=== PATIENT | male | born 1945 | race Caucasian/White ===

== ENCOUNTER 2024-10-16 00:31 | Inpatient (IN) | payer MEDICARE, OTHER, SELFPAY ==
[2024-10-15 22:30] VITALS: BP 123/69
[2024-10-15 22:33] VITALS: BP 123/69
[2024-10-15 22:34] VITALS: BMI 25.6
[2024-10-15 22:58] LABS: % Basophils 0.8 % (0-2); % Eosinophils 6.3 % (0-6); % Immature Granulocytes 0.1 % (0-0.5); % Lymphocytes 20.3 % (20.5-51.1); % Monocytes 12.6 % (1.7-9.3); % Neutrophils 59.9 % (42.2-75.2); Absolute Basophils 0.1 10^3/uL (0-0.2); Absolute Eosinophils 0.5 10^3/uL (0-0.7); Absolute Lymphocytes 1.5 10^3/uL (1.2-3.4); Absolute Monocytes 0.9 10^3/uL (0.1-0.6); Absolute Neutrophils 4.3 10^3/uL (1.4-6.5); Hematocrit 36.8 % (39.0-52.0); Hemoglobin 12.6 g/dL (13.0-18.0); Mean Corp Hgb Conc. 34.2 g/dL (33.0-37.0); Mean Corpuscular Hgb 31.7 pg (27.0-31.0); Mean Corpuscular Volume 92.7 fL (80.0-94.0); Mean Platelet Volume 11.8 fL (7.4-10.4); Nucleated Red Blood Cells % 0 % (-); Platelet Count 193 10^3/uL (130-400); Red Blood Cell Count 3.97 10^6/uL (4.70-6.10); Red Cell Dist. Width 13.3 % (11.5-14.5); White Blood Cell Count 7.2 10^3/uL (4.8-10.8)
[2024-10-15 23:00] VITALS: BP 119/61
--- NOTE | 2024-10-15 23:00 | ED.GENMED ---
History of Present Illness
General
Chief Complaint: Fainting/Passed Out
Source: patient, spouse and ambulance crew
Exam Limitations: none
Time Seen by Provider: 10/15/24 22:33
Nursing documentation reviewed up to this point in time: agreed with
History of Present Illness
History of Present Illness:
The patient is a 79-year-old male who experienced an episode of syncope at home. Per EMS, the patient had a fall and became clammy and unresponsive. The patients initial heart rate was noted to be in the 30s. . EMS provided temporary transcutaneous
pacing. The patient is now experiencing a heart rate in the 50s.
The patient recently returned from a trip to [place], reporting little sleep during travel. The spouse reports a history of two hernia surgeries and a previous hospital visit in [place] in August. The patient was also previously diagnosed with
transient global amnesia by a neurologist after returning from their trip.
Currently, the patient denies chest pain, shortness of breath, or history of blood clots. He did not sustain a head injury from the fall. The patients spouse reported the patient was lightheaded and had a feeling of stumbling forward before falling.
Past History
Past History
ED Past Medical History: HTN, Hypercholesterolemia and Other (pyloric stenosis, prostatic hypertrophy)
ED Past Surgical History: Other (Pyloric stenosis)
Social History
Tobacco: Former smoker
Alcohol: None
Drug: None
Personal:
Living: with family
Employment: Employed
Family History
Family History: Other (Noncontributory); Negative Sudden
Review of Systems
Review of Systems
Allergies reviewed?: Yes
All Other Systems: ROS reviewed and negative except as documented in HPI and ROS
Phy Exam
Physical Exam
Physical Exam:
GENERAL: Alert , in no apparent distress
EYE: pupils equal and reactive
NECK: Supple, no significant adenopathy.
ENT: o/p clr, mmm.
CARDIAC: Bradycardic regular rhythm
LUNGS: Clear breath sounds bilaterally, no acute respiratory distress, no wheezes/rales/rhonchi
ABDOMEN: Soft, without focal tenderness, no r/g, no cvat
NEUROLOGICAL: Alert and oriented, no focal neuro deficits
SKIN: Warm and dry, skin intact.
MUSCULOSKELETAL: No edema, well perfused.
PSYCH: Normal and appropriate interaction.
Course
Orders/Labs/Results
Orders:
Orders
10/15/24 22:32
Electrocardiogram (*1) Urgent
Reason for Study: Syncope
EKG- Treatment ONCE
10/15/24 22:35
Complete Blood Count/With Diff Urgent
Comprehensive Metabolic Panel Urgent
Magnesium Urgent
Comment: ADD ON
TSH Reflex To Free T4 Urgent
Troponin I Urgent
10/15/24 22:53
CT Head W/o Iv Contrast Urgent
Comment:
Reason For Exam: syncope, possible head strike
10/15/24 22:54
Add On- LAB Urgent
Tests Added?: magnesium, tsh free t4
10/15/24 23:07
Chest X-ray Portable [CR Chest Portable - 1 View] Urgent
Comment:
Reason For Exam: syncope dulce maria
Reason Study Needs to be Portable: Patient Unstable
10/15/24 23:21
0.9% Sodium Chloride 500 ml [Nss] 500 ml IV BOLUS
10/15/24 23:45
Dextrose 5%/0.9%Sodchl 500 ml [D5/0.9% Sodium Chloride] 500 ml IV 100 mls/hr
10/15/24 23:52
Admit/Transfer Patient As Directed
Co-Sign Provider:
Level of Care: Inpatient admission
Assign to:: ICU
Physician / Group: Nikko
Diagnosis: syncope, symptomatic bradycardia
Reason for Hospitalization: symptomatic bradycardia, transient junctional rhythm w/ sinus pause
Expected length of stay greater than two midnights?: Yes
ELOS- Estimated Length of Stay in days: 2
I certify the patient meets the requirements for IP care: Yes
PRN Pain Medication Management As Directed
May give lesser potent ordered pain med per pt: Yes
preference::
Protocol:: Medication orders for pain may be administered in a
manner that supports deferring to patient preference
when the pt is:
- Requesting an ordered lesser potent pain medication.
Least to most potent pain medications are defined
as: acetaminophen < NSAID < tramadol < opioids
(morphine, oxycodone, hydromorphone).
- Requesting a lesser dose of the same medication IF
ORDERED.
- Requesting a less intrusive route of administration
if both routes are prescribed by the provider (PO <
IV).
10/15/24 23:53
Code Status As Directed
Resuscitation Status: Full Code
10/16/24 00:15
Add On- LAB Urgent
Tests Added?: Dimer
10/16/24 01:00
Flush (0.9% Sodium Chloride) [Flush (Nss)] See Dose Instructions IV PER PROTOCOL
Abnormal Lab Results
10/15/24
22:35
RBC 3.97 L 10^6/uL
(4.70-6.10)
Hgb 12.6 L g/dL
(13.0-18.0)
Hct 36.8 L %
(39.0-52.0)
MCH 31.7 H pg
(27.0-31.0)
MPV 11.8 H fL
(7.4-10.4)
Absolute Monos (auto) 0.9 H 10^3/uL
(0.1-0.6)
Lymphocytes % 20.3 L %
(20.5-51.1)
Monocytes % 12.6 H %
(1.7-9.3)
Eosinophils % 6.3 H %
(0-6)
BUN 30 H mg/dl
(9-20)
Creatinine 1.6 H mg/dL
(0.7-1.3)
Glucose 155 H mg/dl
(70-99)
Total Protein 5.9 L g/dl
(6.3-8.2)
10/15/24 22:35
10/15/24 22:35
Vital Signs
Initial and Last Documented VS:
Initial Vital Signs
Temp Pulse Resp Pulse Ox
97.3 F 47 16 95
10/15/24 22:28 10/15/24 22:28 10/15/24 22:28 10/15/24 22:28
Last Documented Vital Signs
Temp Pulse Resp BP Pulse Ox
97.3 F 57 18 121/74 98
10/15/24 22:28 10/15/24 23:42 10/15/24 23:42 10/15/24 23:42 10/15/24 23:42
MDM/Problems Addressed
MDM/Problems Addressed:
79-year-old male presenting to the emergency department after syncopal episode found by EMS to be bradycardic appearing to be in junctional rhythm. Concerning this case was discussed with cardiology recommending admission for potential pacer. Here
heart rate in the 50s sinus bradycardia now feeling much better than it previously did. Other vital signs normal. Normal blood pressure. Did have elevation of creatinine and BUN was given fluids troponin negative. Plan to admit for further
monitoring and treatment. Head CT was performed due to the patient's syncopal episode but no evidence of significant traumatic injury.
*Critical Care Note
Total Time (30-74mins, 75-104mins- exclusive of procedures): Not Applicable
ED Attending Note
-
Portions of this chart may have been created with voice recognition software.� Occasional wrong word or��sound alike� substitutions may have occurred due to the inherent limitations of voice recognition software.
Discharge Plan
Departure
Patient Disposition: Admit
Date of Disposition: 10/16/24
Time of Disposition: 00:23
Admit to: IMU
Admit to doctor: Nikko
Presentation/result/management discussed w/ accepting MD/DO: Hospitalist
Patient with high blood pressure during this ER visit?: No
Condition: Good
Covid-19: Not Applicable
Discharge Problem:
Bradycardia, Syncope
Prescriptions:
No Action
simvastatin 10 MG tablet
10 mg PO HS
aspirin 81 MG tablet,delayed release (DR/EC)
81 mg PO DAILY
ascorbic acid (vitamin C) [Vitamin C] 500 MG tablet
1,000 mg PO DAILY
lycopene 10 MG capsule
10 mg PO Daily
Citracal
1 tab PO DAILY
Fish Oil
1 tab PO DAILY
Multivitamin
1 tab PO DAILY
amlodipine-olmesartan [Shimon] 1 EACH tablet
1 tab PO DAILY
hydrocodone-acetaminophen 1 TABLET tablet
1 - 2 tab PO Q4HPRN PRN (Reason: moderate to severe pain) Qty: 10 0RF
Referrals:
PRIVATE,PHYSICIAN [Family Provider, Internal Medicine]
Interventions
Interventions:
*Risk Screen - Suicide Last Done: 10/15/24 22:32
*General Assessment Last Done: 10/15/24 22:32
*Neglect/Abuse Screening Last Done: 10/15/24 22:32
*ED- Fall Risk Assessment Last Done: 10/15/24 22:32
*ED COVID-19 Vaccine History Last Done: 10/15/24 22:35
ED- Cardiac Assessment Last Done: 10/15/24 22:36
ED- Neurological Assessment Last Done: 10/15/24 22:36
Discharge Date and Time
Print Language: VIETNAMESE
[2024-10-15 23:03] LABS: ALT (SGPT) 22 U/L (0-50); AST (SGOT) 28 U/L (17-59); Albumin 3.8 g/dl (3.5-5.0); Alkaline Phosphatase 44 U/L (38-126); Blood Urea Nitrogen 30 mg/dl (9-20); Calcium 9.1 mg/dl (8.4-10.2); Carbon Dioxide 29 mmol/L (22-30); Chloride 106 mmol/L (98-107); Estimated Creatinine Clearance 41 ml/min; Glucose 155 mg/dl (70-99); Magnesium 2.1 mg/dl (1.6-2.3); Potassium 4.4 mmol/L (3.5-5.1); Sodium 140 mmol/L (135-145); Total Bilirubin 0.8 mg/dl (0.2-1.3); Total Protein 5.9 g/dl (6.3-8.2); eGFR 43.83
[2024-10-15 23:16] LABS: Troponin I < 0.012 ng/ml
--- NOTE | 2024-10-15 23:27 | HPS.HSE ---
Family Physician
-
Family Physician: PHYSICIAN PRIVATE
Chief Complaint
-
Symptomatic bradycardia
History of Present Illness
This is a 79-year-old who is only past medical history of hypertension and hyperlipidemia presenting to the emergency department with syncopal episode and found to be in a junctional rhythm by EMS, now sinus bradycardia in the 50s and lethargic but
awake oriented and complicated.
Patient spouse provided history. She stated that they had just [place] [facility]. He reports moderate dehydration and has not really eaten during the flight. He apparently was walking holding an object when the spouse
just had a fall. She came to see him on the floor looking very pale and minimally responsive. He actually came to on his own and requested some fluid. She called EMS. When EMS arrived the initial vital signs showed that he was not hypotensive
but was bradycardic and had junctional rhythm on the telemetry. The AV paced in for a minute or less and he went into sinus bradycardia. He has been in sinus bradycardia since.
Patient is not on any beta-willy. He is not on any supplements. Reported that he uses cannabis occasionally and did use cannabis on arrival after a history of 2 problems to them. He denies having any chest pain. He denies any cough fevers or
chills.
Patient apparently had a TIA/transient global amnesia a few months ago. He underwent extensive testing at outside hospital in [place]. He had MRI, EEG, echo ECG telemetry which all showed normal findings. Denies any prior history of syncopal
episodes. He denies recent episodes of palpitations lightheadedness or dizziness. Denies recent episodes of unexplained nausea or vomiting.
Spouse reported that these speech has been slightly slurred since the fall.
In the emergency department patient had a blood pressure of 120/69 pulse was 48 respirate rate of 16 temp of 91.3 and is satting 98% on room air.
ECG shows sinus bradycardia at a rate of [address] or T wave changes. Troponin is negative. TSH within normal range.
CT of the head shows no acute interval changes. Specifically no intracranial bleed and no foci or subacute stroke. Chest x-ray is pending. CBC completely within normal limits. Electrolytes completely within normal limit. Magnesium normal. BUN
and creatinine were 30 and 1.6 without known prior.
Medical History
Past Medical History
Past Medical History: Reports HTN and Hypercholesterolemia
Past Surgical History: Reports Other (Your hernia repair)
Social History
Tobacco: Non-smoker
Alcohol: Occasional
Drug: Marijuana
Personal:
Living: With Family
Employment: Retired
Family History
Family History: Not pertinent
Allergies / Home Medications
Allergies reflects when Allergies were last updated in [facility].
Home Medications with original date entered in [facility]
Allergy/Medication List:
Allergies
Allergy/AdvReac Type Severity Reaction Status Date / Time
adhesive Allergy reddness Verified 03/08/18 08:17
Home Medications
Review of Systems
-
History Source: Patient and Family
Constitutional: Reports No Symptoms
EENT: Reports No Symptoms
Respiratory: Reports No Symptoms
Cardiac: Reports No Symptoms
Abdomen/GI: Reports No Symptoms
: Reports No Symptoms
Musculoskeletal: Reports No Symptoms
Skin: Reports No Symptoms
Neurological: Reports No Symptoms
Endocrine: Reports No Symptoms
Hematologic/Lymphatic: Reports No Symptoms
Psych: Reports No Symptoms
Physical Exam
Vital Signs
Vital Signs
Temp Pulse Resp BP Pulse Ox
97.3 F 49 16 123/69 96
10/15/24 22:28 10/15/24 22:31 10/15/24 22:31 10/15/24 22:33 10/15/24 22:31
Physical Exam
General: Well Developed, Well Nourished and No Apparent Distress
HEENT: NormoCephalic, Moist mucous membranes and Atraumatic
Respiratory: Clear
Cardiac: S1/S2 and Regular Rhythm; No Murmur or Rub
GI: Soft, Non Tender, Non Distended and Normal Bowel Sounds; No Organomegaly
Rectal: Deferred by Provider
Musculoskeletal: No Clubbing, No Cyanosis and No Edema
Skin: No Rash
Neuro: Nonfocal/grossly intact
Laboratory Results
-
10/15/24 22:35
10/15/24 22:35
Laboratory Results
Total Bilirubin 0.8 mg/dl (0.2-1.3) 10/15/24 22:35
AST 28 U/L (17-59) 10/15/24 22:35
ALT 22 U/L (0-50) 10/15/24:35
Alkaline Phosphatase 44 U/L (38-126) 10/15/24 22:35
Troponin I < 0.012 ng/ml 10/15/24 22:35
Data Reviewed
-
Diagnostic Radiology: Image Personally Visualized and interpreted
CT Scan: Report Reviewed by me
Medical Tests (Nuc Med, Echo, EKG etc): Image Personally Visualized and interpreted
Lab Data: Labs Reviewed by me
Old Records: Reviewed
Impression/Plan
-
IMPRESSION:
79-year-old with past medical history of hypertension hyperlipidemia presented to the emergency department with a syncopal episode and found to be and transient heart block and now currently in sinus bradycardia. Suspect symptomatic bradycardia
versus transient heart block as etiology of the syncopal episode. Cannot rule out a stroke entirely but patient's neurological status is intact and NIHSS equals 0 at this time. Spouse report ongoing slurred speech though not evident to me. He is
not on any beta-blockade. ECG is nonischemic. Troponin is negative. No rash. BUN/creatinine slightly elevated and patient management dehydrated.
PLAN:
1. Symptomatic bradycardia/transient heart block
- Admit to ICU
- N.p.o
- Cycle cardiac enzymes
- Plan for possible PPM in the morning
- Patient with ZOLL pad for possible transcutaneous pacing
- dopamine for hemodynamically significant bradycardia and call cardiology for temporary transvenous pacing.
- Maintenance fluids for now
- Echo in a.m. Lipid panel, a1c
- further ischemic testing per cardiology
- PPM per cardiology
- Cardiology consulted and notified
2. Syncope/Slurred speech -NIHSS equals 0, possibly from syncopal episode versus acute stroke. NO Sz hx.
- check d-dimer to r/o pe
- Neurochecks every 4
- MRI in a.m.
- Lipid panel and A1c
- ESR
- npo except meds for now
3. KIMBERLI - pre-renal azotemia, on ARB (olmesartan)
- hold olmesartan
- IV fluids overnight and re-assess bun/cr
DVT PPX - lovenox sq
Code status - Full Code
[2024-10-15 23:38] VITALS: BP 121/74
[2024-10-15 23:42] VITALS: BP 121/74
[2024-10-15 23:42] LABS: TSH Reflex To Free T4 4.28 uIU/ml (0.47-4.68)
[2024-10-15] MEDS: NSS 500 IV (23:43)
[2024-10-16] VITALS (13 sets, daily range): BP systolic 125–173; BP diastolic 71–97; BMI 27.2
--- NOTE | 2024-10-16 00:18 | CON.CAR ---
Addendum entered and electronically signed by Darryl Contreras MD 10/16/24 00:40:
Note this patient's primary retrofit installer is Dr. Trav Luna. I have reviewed issues with Dr. Douglass. [facility] will be the primary consultants for this patient the rest of the hospitalization. They will be reassessing the patient in AM.
Original Note:
Consultation
Consultation Request
Date/Time Consultation Requested: 10/15/2024 at 1108
Date/Time Consultation Performed: 10/15/2024 at 1130
Requesting Provider: [facility]
Performing Provider: Dr. Contreras
Reason for Consultation: Syncope. Bradycardia
Medical History
-
History of Present Illness:
Primary retrofit installer Dr. Trav Luna
79-year-old male with a history of bicuspid aortic valve in September mild aortic stenosis based on echocardiogram 2022 who presents after an episode of syncope. Patient had return from [place] today. He was tired but otherwise feeling well. He
smoked marijuana and then had dinner and then afterwards decided to smoke a little bit more. Afterwards he was a bit lightheaded and was walking down the stairs and then shortly after getting to the bottom of the stairs he fell. Appear to be a
syncopal episode. When found him on the floor he was pale and diaphoretic EMS was called. Apparently they sat up in a chair before getting him out to the stretcher and when they sat him in a chair he had another syncopal event. Patient's
heart rate was in the 30s. EMS strip shows sinus bradycardia and then there is a strip with sinus bradycardia and then 4 beats of junctional bradycardia at a heart rate of 36. Patient apparently was briefly paced in the field but is currently
comfortable and asymptomatic with sinus bradycardia and heart rates in the 50s.
No history of coronary artery disease no complaints of chest pain or shortness of breath. No recent episodes of palpitations lightheadedness syncope or near syncope. Between 2008 and 2015 he had 3 ER visits with syncope or near syncope in 2008 he
had an episode of syncope after smoking marijuana. 2011 he had a syncopal episode after working out in the gym and was noted to be hypotensive and suspected to be volume depleted in 2016 he had near syncope while barbecuing in the heat.
Review of systems otherwise unremarkable
Past medical history
Hypertension
hyperlipidemia
bicuspid AV
mild as based on 2022 echo
mild to mod TR
Past Medical History
Past Medical History: Other (As above)
Social History
Tobacco: Other (Smokes marijuana)
Personal:
Living: With Family
Family History
Family History: Reviewed & Not Pertinent
Allergies / Home Medications
Allergy/AdvReac Type Severity Reaction Status Date / Time
adhesive Allergy reddness Verified 03/08/18 08:17
�Medication �Instructions �Recorded �Confirmed �Type
Citracal 1 tab PO DAILY 12/15/13 11/08/15 History
Fish Oil 1 tab PO DAILY 12/15/13 11/08/15 History
Multivitamin 1 tab PO DAILY 12/15/13 11/08/15 History
ascorbic acid (vitamin C) 500 mg 1,000 mg PO DAILY 12/15/13 11/08/15 History
tablet (Vitamin C)
aspirin 81 mg tablet,delayed 81 mg PO DAILY 12/15/13 11/08/15 History
release
lycopene 10 mg capsule 10 mg PO Daily 12/15/13 11/08/15 History
simvastatin 10 mg tablet 10 mg PO HS 12/15/13 11/08/15 History
amlodipine 5 mg-olmesartan 20 mg 1 tab PO DAILY 11/08/15 11/08/15 History
tablet (Shimon)
hydrocodone 5 mg-acetaminophen 325 1 - 2 tab PO Q4HPRN PRN moderate 03/08/18 Rx
mg tablet to severe pain ##10
Review of Systems
-
All other systems: Negative unless noted
Physical Exam
Vital Signs
Temp Pulse Resp BP Pulse Ox
97.3 F 57 18 121/74 98
10/15/24 22:28 10/15/24 23:42 10/15/24 23:42 10/15/24 23:42 10/15/24 23:42
Lab Results
10/15/24 22:35
10/15/24 22:35
Troponin I < 0.012 ng/ml 10/15/24 22:35
Physical Exam
General: Well Developed, Well Nourished and No Apparent Distress
HEENT: Normocephalic, Anicteric and Other (eomi peerl, dry mouth.,no jvd or bruit)
Respiratory: Clear and Wheezes
Cardiac: Regular Rhythm
GI: Non Tender and Non Distended
Musculoskeletal: No Clubbing, No Cyanosis and No Edema
Skin: Warm, Dry and Rash (None)
Neuro: Awake, Alert and Other (Cranial nerves appear intact moving all 4 extremities motor strength appears symmetrical)
Psych: Calm and Other (Cooperative)
Impression / Plan
-
.
Syncope. Patient with episode of syncope tonightwas noted to have sinus bradycardia and periods of junctional bradycardia with Hr in 30s on strips from EMS. ECG in ER with sinus bradycardia with heart rates in the 50s. Currently patient without
symptoms and blood pressure stable.
- Presentation suggestive of symptomatic bradycardia leading to syncope. No other meds contributing. No clear vagal episode. Based on above would recommend pacemaker.. If patient has issues with recurrent severe bradycardia then could try
dopamine. If patient not responsive or if patient is having longer pauses then then we would consider temporary pacer.
-Admit to ICU
-Echocardiogram in a.m.
-D-dimer pending if abnormal would proceed with CT
Bicuspid aortic valve and mild aortic stenosis by last echo 2022. Reassess with echocardiogram
.
KIMBERLI - creatinine 1.6.
- IVF
-optimize hemodynamics
-hold ARB
.
Hypertension. Stable.
.
Hypercholesterolemia. Continue statin
Data Reviewed
-
EKG: Tracing Personally Visualized and interpreted and Report Reviewed by me
Radiology: Discussed with Physician
Medical Tests (Nuc Med, Echo etc): Report Reviewed by me
Labs: Labs Reviewed by me
[2024-10-16 01:21] LABS: Glucose - Point of Care 122 mg/dl (70-99)
[2024-10-16 01:22] LABS: D-Dimer 1.63 ug/mlFEU (0.00-0.50)
[2024-10-16] MEDS: NSS 1000 IV (01:28)
[2024-10-16] MEDS: D5/0.9% SODIUM CHLORIDE 500 IV (01:29)
[2024-10-16 02:09] LABS: Troponin I < 0.012 ng/ml
--- NOTE | 2024-10-16 02:23 | PTCARENOTE ---
Pt admit to ICU from ED. Pt AAOx3. Drowsy, easily arousable. Answers questions correctly. While answering questions, pt began to slur speech but stated it was because his mouth was very dry. Mouth swab provided, slurred speech resolved. B/l pupils
equal, reactive. Tongue midline. Good strength in all extremities. Labs drawn, EKG completed. IVF infusing as ordered. Updated pt on plan of care, pt states understanding.
[2024-10-16 05:36] LABS: Hematocrit 41.6 % (39.0-52.0); Hemoglobin 14.1 g/dL (13.0-18.0); Mean Corp Hgb Conc. 33.9 g/dL (33.0-37.0); Mean Corpuscular Hgb 31.5 pg (27.0-31.0); Mean Corpuscular Volume 92.9 fL (80.0-94.0); Mean Platelet Volume 11.8 fL (7.4-10.4); Platelet Count 200 10^3/uL (130-400); Red Blood Cell Count 4.48 10^6/uL (4.70-6.10); Red Cell Dist. Width 13.3 % (11.5-14.5); White Blood Cell Count 9.2 10^3/uL (4.8-10.8)
[2024-10-16 05:43] LABS: INR 1.01; PT 13.8 Sec (11.4-14.6)
[2024-10-16 05:44] LABS: APTT 24.9 Sec (23.4-35.0)
--- NOTE | 2024-10-16 05:45 | PTCARENOTE ---
Pt d-dimer elevated, ICU [employer] awar. Chest CT ordered. Pt to CT and back.
At 0518 pt with 27 beat run VT. Pt asymptomatic. denies any fluttering in chest, lightheadedness, or dizziness. VSS. EKG obtained. [employer] Aware. Awaiting lab results.
[2024-10-16 05:53] LABS: Blood Urea Nitrogen 29 mg/dl (9-20); Calcium 8.8 mg/dl (8.4-10.2); Carbon Dioxide 25 mmol/L (22-30); Chloride 110 mmol/L (98-107); Estimated Creatinine Clearance 54 ml/min; Glucose 102 mg/dl (70-99); HDL Cholesterol 53 mg/dl; LDL Cholesterol, Calculated 69 mg/dl; Potassium 4.3 mmol/L (3.5-5.1); Sodium 141 mmol/L (135-145); Total Cholesterol 146 mg/dl (50-199); Triglyceride 123 mg/dl (10-149); Very Low Density Lipoprotein 24 mg/dl (0-30); eGFR > 60.00
[2024-10-16 05:57] LABS: Troponin I < 0.012 ng/ml
[2024-10-16 06:00] LABS: NT-proBNP 400 pg/ml
[2024-10-16 07:42] LABS: Erythrocyte Sed Rate 7 mm/hour (0-20)
--- NOTE | 2024-10-16 08:06 | CON.INTV ---
Consultation
Consultation Request
Date/Time Consultation Requested: 10/16/2024104
Date/Time Consultation Performed: 10/16/2024756
Requesting Provider: Dr. El
Performing Provider: Dr. Calderon
Reason for Consultation: Bradycardia/Syncope
Medical History
-
Chief Complaint: Passed out
History of Present Illness:
79-year-old male former tobacco smoker with a past medical history of bicuspid aortic valve, history of syncope, pyloric stenosis s/p pyloroplasty, and hypertension who presents with a fall at home after passing out. 9 1 was called for a lift
assist. Once EMS arrived, they noticed his heart rate was in the 30s and he was unresponsive. Initial rhythm reportedly was junctional. Patient was externally paced for approximately 1 minute. The spouse reported that the patient's speech has
been slightly slurred since the fall. In the ER he was afebrile to 97.3 �F, bradycardic to 47, breathing at 16 breaths/min, BP 123/69 and saturating 95% on room air. Labs significant for WBC 7.2, Hb 12.6, absolute eosinophil count 500, creatinine
1.6, troponin negative at <0.012, and TSH WNL at 4.28. CT head performed showing no acute intracranial abnormality. CXR showed no acute cardiopulmonary pathology. CTA chest was negative for any acute pulmonary embolism or thoracic aortic
dissection, and there was mild bibasilar subsegmental atelectasis with minimal calcification of the aortic valve. He was given 500 cc bolus of NS 0.9% in the ER and then was admitted to the ICU for further monitoring. [facility] services
consulted for additional management/recommendations
Patient seen and evaluated this morning. Current heart rate 52, BP 173/85 and breathing comfortably on room air. He is sitting in a chair no acute distress. He currently feels well, denying chest pain, GUEVARA, nausea, fevers or chills. Since
admission here to the ICU, he had a single long run of nonsustained VT.
PMHx: Hypertension, pyloric stenosis, history of syncope, bicuspid aortic valve, mild aortic regurgitation, history of TIA
PSHx: Left metacarpal ORIF (2010), pyloroplasty, right hernia repair, tonsillectomy, vasectomy
Past Medical History
Past Medical History: Other (Above as per HPI)
Past Surgical History: Other (Above as per HPI)
Social History
Tobacco: Former Smoker
Alcohol: None
Drug: None and Marijuana
Personal:
Living: With Family (: Jennifer)
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
Family History
Family History: Cancer (Brother: Prostate cancer) and Other (Father: Prostate disease)
Allergies / Home Medications
Allergies
Allergy/AdvReac Type Severity Reaction Status Date / Time
adhesive Allergy reddness Verified 10/16/24 00:32
Home Medications
�Medication �Instructions �Recorded �Confirmed �Last Taken �Type
Citracal 1 tab PO DAILY Supplement 12/15/13 10/16/24 12/15/13 History
Fish Oil 1 tab PO DAILY Supplement 12/15/13 10/16/24 12/15/13 History
ascorbic acid (vitamin C) 500 mg 1,000 mg PO DAILY Supplement 12/15/13 10/16/24 12/15/13 History
tablet (Vitamin C)
aspirin 81 mg tablet,delayed 81 mg PO DAILY Blood Clot 12/15/13 10/16/24 12/13/13 History
release Prevention/Tx
lycopene 10 mg capsule 10 mg PO Daily Supplement 12/15/13 10/16/24 12/15/13 History
simvastatin 10 mg tablet 10 mg PO HS High Cholesterol 12/15/13 10/16/24 12/14/13 History
olmesartan 5 mg tablet 5 mg PO DAILY Blood Pressure 10/16/24 10/16/24 Unknown History
Review of Systems
-
History Source: Patient
All other systems: Negative unless noted
Vitals / Labs / Diagnostic Testing
Vital Signs
Temp Pulse Resp BP Pulse Ox
98.4 F 52 18 137/83 98
10/16/24 07:37 10/16/24 09:30 10/16/24 09:30 10/16/24 09:00 10/16/24 09:00
Lab Data
10/16/24 05:12
10/16/24 05:12
Laboratory Results
10/16/24
05:12
PT 13.8
INR 1.01
APTT 24.9
Diagnostic Testing:
Physical Exam
-
HEENT: Normocephalic and Anicteric
Cardiovascular: S1/S2 and Other (Bradycardic)
Respiratory: Clear, Wheeze (n), Rales (n), Rhonchi (n) and Non-Labored Respirations
GI: Soft, Non Distended, Non Tender and Normal Bowel Sounds
Neurology: AO x 3 and Tremors (n)
Skin: Warm and Dry
General: Respiratory Distress (n), Comfortable, Fever (n) and Chills (n)
Assessment
-
Assessment: 79-year-old male former tobacco smoker with a past medical history of bicuspid aortic valve, history of syncope, pyloric stenosis s/p pyloroplasty, and hypertension who presents with a fall at home after passing out. 9 1 was called for
a lift assist. Once EMS arrived, they noticed his heart rate was in the 30s and he was unresponsive. Initial rhythm reportedly was junctional. Patient was externally paced for approximately 1 minute. The spouse reported that the patient's speech
has been slightly slurred since the fall. In the ER he was afebrile to 97.3 �F, bradycardic to 47, breathing at 16 breaths/min, BP 123/69 and saturating 95% on room air. Labs significant for WBC 7.2, Hb 12.6, absolute eosinophil count 500,
creatinine 1.6, troponin negative at <0.012, and TSH WNL at 4.28. CT head performed showing no acute intracranial abnormality. CXR showed no acute cardiopulmonary pathology. CTA chest was negative for any acute pulmonary embolism or thoracic
aortic dissection, and there was mild bibasilar subsegmental atelectasis with minimal calcification of the aortic valve. He was given 500 cc bolus of NS 0.9% in the ER and then was admitted to the ICU for further monitoring. [facility] services
consulted for additional management/recommendations
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
Impression:
#Bradycardia arrhythmia with junctional rhythm
#Syncopal episode with acute encephalopathy due to above - acute encephalopathy now resolved
#NSVT
#KIMBERLI � resolved; baseline creatinine appears to be 0.9�1.2 after review of blood work from
#History of recent TIA
#Bicuspid aortic valve
#Hypertension
#Pyloric stenosis s/p pyloroplasty
#THC use
Plan:
- Planning for stress echo today
- Cardiology following and recs appreciated
- Okay to resume other home medications given creatinine is normal and is not bleeding and is awake/alert and in no acute distress with no seemingly risk of aspiration
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
- Patient would like to avoid a pacemaker if possible
- His heart rate is baseline low in the 60-70s so although he had an episode of nonsustained VT overnight, would be very careful adding a beta-willy or CCB to his regimen-defer to cardiology
- In the interim, maintain SpO2 >90-94%
- Maintain MAP>65
- Replete electrolytes with K>4, Mg>2
- Maintain euglycemia with goal BG 140-180
- Trend H/H and transfuse if needed to keep Hb>7g/dL; keep plt>20k, unless there is concern for bleeding then keep plt>50k
- prn nebulized bronchodilators - not currently bronchospastic
- Incentive spirometer encouraged 10x per hour for at least 4 hrs a day
- DVT ppx: LMWH
[facility] services will continue to follow along while he remains in the ICU. If stress testing/echo findings are normal, then will either downgrade to IVU or discharge home if cardiology agrees. Once he is transferred/discharged, our service
will sign off at that time.
Data:
CTA Chest 10/16/2024:
1. No evidence of pulmonary embolism or thoracic aortic dissection.
2. Mild bibasilar subsegmental atelectasis, otherwise clear lungs.
3. Minimal calcification of the aortic valve. Please correlate for signs and symptoms of aortic valvular disease
Total time spent today was 82 minutes for this encounter. Time includes reviewing laboratory test/imaging results, reviewing pertinent medical records, obtaining and reviewing medical history, performing an appropriate exam, ordering medications,
tests and procedures. Time also includes documentation of this encounter, coordinating patient care and communicating with other healthcare professionals. Total time does not include separately billed tests performed on this date of service.
--- NOTE | 2024-10-16 08:30 | PTCARENOTE ---
Received pt awake and alert.Speech is appropriate.+5/5MAE.Assisted oob to chair with minimal assist.Denies pain.SB-SR noted.Lungs CTA.POX 97%NPO.No BM.Voiding clear yellow urine.Skin integrity as documented.Plan of care discussed.
--- NOTE | 2024-10-16 08:45 | W.PN.CARDCBS ---
Addendum entered and electronically signed by Trav Luna MD 10/16/24 12:22:
79-year-old man with bicuspid aortic valve, recent TIA versus transient global amnesia with near syncopal episode after 21-day trip to [place] and intake of large amounts of marijuana. Documented EMS strips in transit showed junctional escape but no
heart block or prolonged periods of sinus arrest. Since admission he has had a single long run of nonsustained VT
PMH: Bicuspid aortic valve, peak gradient 21 mmHg 2022, hypertension, hyperlipidemia, TIA versus transient global amnesia
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
Outpatient meds: Aspirin 81 mg a day, simvastatin 10 mg a day, olmesartan 5 mg a day
137/83, pulse 52, respirations 18 afebrile, no distress, head neck exam unremarkable, lungs are clear, cardiac exam notable for mild aortic stenosis murmur, JVD okay, carotids okay, abdomen benign extremities without clubbing cyanosis or edema
Hemoglobin 14.1, creatinine 1.2, was 1.6 yesterday, D-dimer 1.63, normal TSH
Chest CT with pulmonary embolism protocol negative for pulmonary embolism
ECG sinus bradycardia, rate 50, mild IVCD
Impression:
See below as per Carmen Sepulveda. Reviewed in detail and agree, unless otherwise specified below.
He is admitted with syncope that I think is probably vagally mediated. He has a bicuspid aortic valve but no significant aortic stenosis.
Plan:
He presents with syncope that I suspect is vagally mediated. He had KIMBERLI which is now improving. This all occurred after a 21-day trip and marijuana smoking binge in the setting of dehydration. He recently had an extensive neurologic evaluation in
[place] for what could have been transient global amnesia, which itself could have related to marijuana use. He resolved he will now abstain. He has not had a monitor. It is unclear whether an echo was performed in [place].
He is anxious to avoid pacemaker implantation, and I am hopeful that this will not be required.
Will proceed with a stress echo and an echo.
His nonsustained VT is a surprise. It is conceivable that this is playing a role in his episode, though I am somewhat skeptical. He is bradycardic at baseline so a beta-willy is not a good idea.
If his stress echo and echo are unremarkable, he can be discharged later today with an ambulatory monitor with telemetry.
We will arrange for outpatient cardiac follow-up.
Addendum entered and electronically signed by Carmen Sepulveda PA-C 10/16/24 09:51:
EMS strips obtained and reviewed. Sinus dulce maria aside from 4-beats of junctional rhythm. given syncope/bradycardia/brief junctional rhythm/NSVT, will plan for lexiscan nuclear stress test and echo today. if ok, will plan for OP rhythm star monitor.
d/w patient and he is agreeable to plan. d/w nursing, cardiac services.
Original Note:
Today's Communication / Plan
-
have requested EMS strips for review
check mag
check echo
follow tele
discussed PPM placement and he is hesitant to proceed. He is suspicious that event was caused by marijuana use and therefore hoping to avoid PPM. NPO for now
Impression / Plan
-
Primary Cyber Security Consultant: Dr. SHELBY Luna
Assessment:
Presentation with fall, syncope
Transient junctional bradycardia
Sinus bradycardia
NSVT
Marijuana use
KIMBERLI
Bicuspid aortic valve
HTN
HLD
TIA versus transient global amnesia 08/2024
Former smoker
ECHO 12/2022: EF 60 to 65%, no regional wall motion abnormalities noted, bicuspid aortic valve with peak/mean gradients 21/12 mmHg, OLIVIA 0.5 cm�, very mild aortic stenosis and mild AR, mild TR, PAP 29 mmHg, top normal size aortic root at 3.8 cm
ECHO 10/16/24: pending
Plan:
- Patient is a 79-year-old male with past medical history of bicuspid aortic valve, hypertension, hyperlipidemia, and admission 08/2024 for TIA versus transient global amnesia who just returned from a 21-day trip to [place]. He reports he has been
tired since arriving home. Last evening he smoked marijuana for the first time in 21 days, and reports he smoked too much. He states he then became dizzy. He states that he then fell but did not pass out. His noted he was clammy and
minimally responsive and she called EMS. On their arrival BP reportedly stable but heart rate was in the 30s and he was felt to have intermittent junctional bradycardia. EMS provided temporary transcutaneous pacing and heart rates then improved to
50s in sinus bradycardia. Since that time he has not had recurrence of junctional rhythm by review of telemetry. He reports he has history of syncope in the past related to marijuana use, years ago. Last echo was in 2022 with normal EF and
bicuspid aortic valve with very mild . He had prior calcium score of 0, but was noted to have calcification seen in aortic valve. Troponins negative. He reports he is very active and denies chest discomfort or shortness of breath with exerting
himself.
- based on bloodwork appeared dehydrated on arrival in addition, Cr improving with IVF, 1.2 on 10/16. OP olmesartan on hold
- Head CT negative for acute abnormalities
- In sinus bradycardia on review of telemetry overnight. No recurrence of junctional rhythm. No pauses or AV block noted. have requested EMS strips for review
- Did have 27 beat run of NSVT overnight while sleeping. Patient asymptomatic. Potassium stable. Check magnesium. trop negative x3. Not on AV rosibel blockers as an outpatient
- Check echo
- Discussed marijuana cessation and he is agreeable
- we discussed PPM placement and he is hesitant to proceed. He is suspicious that event was caused by marijuana use and therefore hoping to avoid PPM. NPO for now
- d/w nursing
Progress Note - Cyber Security Consultant
Subjective
Date of Service: October 16, 2024
Without present symptoms. Denies palpitations, lightheadedness
Objective
Labs:
10/16/24 05:12
10/16/24 05:12
Labs
Hgb 14.1 g/dL (13.0-18.0) 06/12/25 05:12
Hct 41.6 % (39.0-52.0) 10/16/24 05:12
Plt Count 200 10^3/uL (130-400) 10/16/24 05:12
PT 13.8 Sec (11.4-14.6) 10/16/24 05:12
INR 1.01 10/16/24 05:12
APTT 24.9 Sec (23.4-35.0) 10/16/24 05:12
Sodium 141 mmol/L (135-145) 10/16/24 05:12
Potassium 4.3 mmol/L (3.5-5.1) 10/16/24 05:12
BUN 29 mg/dl (9-20) H 10/16/24 05:12
Creatinine 1.2 mg/dL (0.7-1.3) 10/16/24 05:12
Glucose 102 mg/dl (70-99) H 10/16/24 05:12
Troponins
10/15/24 10/16/24 10/16/24
22:35 01:27 05:12
Troponin I < 0.012 < 0.012 < 0.012
Vital Signs and I&O:
Vital Signs
Temp Pulse Resp BP Pulse Ox
98.4 F 46 14 156/81 96
10/16/24 07:37 10/16/24 05:45 10/16/24 05:45 10/16/24 05:14 10/16/24 05:45
Vital Signs
Temp Pulse Resp BP Pulse Ox
98.4 F 46 14 156/81 96
10/16/24 07:37 10/16/24 05:45 10/16/24 05:45 10/16/24 05:14 10/16/24 05:45
Intake & Output
10/14/24 10/15/24 10/16/24 10/17/24
07:59 07:59 07:59 07:59
Intake Total 800 / 800
Output Total 350 / 350
Balance 450 / 450
Physical Exam
Physical Exam
GEN: No distress, awake, alert, oriented x3
HEENT: supple, anicteric, mmm, eomi
LUNGS: CTA B/L, no wheezes/rales
CV: Reg and dulce maria, S1/S2, 1/6 syst LSB
ABD: soft, BS+, NT/ND
EXT: No cyanosis, clubbing, edema
NEURO: Gross non-focal
SKIN: Warm, pink, dry. No rash
[2024-10-16 09:22] LABS: Glycohemoglobin (HgbA1c) 5.4 % (4.0-5.6)
--- NOTE | 2024-10-16 09:43 | W.PN.HOSP.TC ---
Today's Communication/Plan
-
Continue with cardiac monitoring
Keep n.p.o. till cardiology evaluation
Echo today
Assessment / Plan
Assessment / Plan
IMPRESSION:
79-year-old with past medical history of hypertension hyperlipidemia presented to the emergency department with a syncopal episode and found to be and transient heart block and now currently in sinus bradycardia. Suspect symptomatic bradycardia
versus transient heart block as etiology of the syncopal episode. Cannot rule out a stroke entirely but patient's neurological status is intact and NIHSS equals 0 at this time. Spouse report ongoing slurred speech though not evident to me. He is
not on any beta-blockade. ECG is nonischemic. Troponin is negative. No rash. BUN/creatinine slightly elevated and patient management dehydrated.
PLAN:
1. Symptomatic bradycardia/junctional rhythm
- No further junctional rhythm. No heart blocks on the monitor currently. Hemodynamically stable.
No prior history of rhythm disturbances.
- Check an echocardiogram.
- Cardiology evaluation pending.
2. Syncope/Slurred speech -NIHSS equals 0, possibly from syncopal episode than acute stroke. NO Sz hx.
-Suspect combination of dehydration and rhythm issues.
- No evidence of PE
- CT head shows no evidence of acute intracranial abnormalities
3. KIMBERLI - pre-renal azotemia, on ARB (olmesartan)
- hold olmesartan
- Normalized creatinine now. No extrarenal losses.
DVT PPX - lovenox sq
Code status - Full Code
Anticipated Discharge: Today
Subjective/Interval History
-
Date of Service: October 16, 2024
Requesting nonspecific complaints.
No further syncope. Denies any dizziness. He was out of bed in chair asked to use the bathroom without any dizziness.
No nausea or vomiting. Currently n.p.o. for procedures.
No abdominal pain.
No dysuria.
She denies any chest pain ,shortness of breath or palpitations.
Objective Data
-
Labs:
Laboratory Results
10/15/24 10/16/24
22:35 05:12
WBC 7.2 9.2
Hgb 12.6 L 14.1
Hct 36.8 L 41.6
Plt Count 193 200
PT 13.8
INR 1.01
APTT 24.9
Sodium 140 141
Potassium 4.4 4.3
Chloride 106 110 H
Carbon Dioxide 29 25
BUN 30 H 29 H
Creatinine 1.6 H 1.2
Glucose 155 H 102 H
Calcium 9.1 8.8
Total Bilirubin 0.8
AST 28
ALT 22
Alkaline Phosphatase 44
Vital Signs:
Vital Signs
Temp Pulse Resp BP Pulse Ox
98.4 F 52 18 137/83 98
10/16/24 07:37 10/16/24 09:30 10/16/24 09:30 10/16/24 09:00 10/16/24 09:00
I&O
10/15/24 10/16/24 10/17/24
06:59 06:59 06:59
Intake Total 800 / 800
Output Total 350 / 350
Balance 450 / 450
Physical Exam
-
General: Comfortable
Respiratory: Non Labored Respirations; Negative Accessory Resp Muscle Use
Cardiac: Regular Rhythm, S1/S2 and Bradycardic
GI: Soft
Neuro: AO x 3
Data Reviewed
-
Labs: Labs Reviewed by me
--- NOTE | 2024-10-16 10:45 | PTCARENOTE ---
Pt transported to cardiac services via stretcher for stress echocardiogram.Pt's at bedside.Plan of care discussed.
--- NOTE | 2024-10-16 12:44 | PTCARENOTE ---
Pt returned to ICU via stretcher.Assessment unchanged.
--- NOTE | 2024-10-16 13:21 | CM ---
Initial assessment completed with patient and who live in a 2 story home plus basement with B/B on . 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 No DME or in-home services. Does have a HC-POA. Was in the [employer]. Lives in [place] 7 months a year. PCP is Dr. Sho Cook in [place] phone # [phone] and fax # [phone]. Discharge POC: Anticipate home with no needs.
[2024-10-16] MEDS: COZAAR 12.5 MG PO (13:23)
--- NOTE | 2024-10-16 13:31 | W.PN.UPDATE ---
Update Note
Progress Note Update
Discussed results of stress echo and echocardiogram with patient and at bedside. No evidence of ischemia. Preserved EF, with possible bicuspid aortic valve with mild . Telemetry remains stable, sinus bradycardia without pauses or AV block
or further NSVT. Discussed plan for 7-day rhythm star monitor placement prior to discharge. Outpatient cardiac follow-up arranged. Okay for discharge. Discussed with nursing.
--- NOTE | 2024-10-16 14:35 | W.DCSUMMARY ---
Discharge Summary
Discharge Data
Date of Admission: 10/16/24
Date of Discharge: 10/16/24
-
Pending Results: No
Hospital Course
Primary diagnosis:
Symptomatic bradycardia/junctional rhythm
Syncope suspect vagally mediated
Acute kidney injury
Secondary diagnosis
History of TIA versus transient global amnesia
History of bicuspid aortic valve
Hospital course:
Patient returned back after 21 days of trip to [place] and upon return he had large amounts of marijuana at home and then he had a syncopal event at home. EMS strip in transit showed junctional escape but no heart block or prolonged period of sinus
arrest. Post admission had single run of nonsustained VT. No prior history of cardiac disease. With KIMBERLI which resolved with fluids the suspicion for syncope was probably vagally mediated. [place] was the 1 brief episode of nonsustained VT. He
was further evaluated with a stress echo and echocardiogram which showed no evidence of ischemia, preserved EF with possible bicuspid aortic valve with mild . Telemetry further on remained stable without pauses or AV blocks or further known SVT.
Cardiology saw and cleared him today with a plan for 7-day rhythm monitor placement and follow-up as an outpatient.
Consultants on board:
Cardiology-Trav Wise
Discharge Plan
-
Patient Disposition: Home (Routine Discharge)
Discharge Diagnosis/Procedures: Syncope suspected vasovagal
Diet: Regular
Activity: As tolerated
Driving Restrictions: As prior to admission
Bathing Restrictions: None
Referrals:
PRIVATE,PHYSICIAN [Family Provider, Internal Medicine]
Alona Nunez CRNP [Specified Professional Personl, Cardiology] - 11/04/24 12:40 pm
Referral Note: You have a cardiology follow-up appointment at the [facility] office with Dr. Luna's nurse practitioner, Alona. Please call with questions
Prescriptions:
Continued
simvastatin 10 MG tablet
10 mg PO HS
aspirin 81 MG tablet,delayed release (DR/EC)
81 mg PO DAILY
ascorbic acid (vitamin C) [Vitamin C] 500 MG tablet
1,000 mg PO DAILY
lycopene 10 MG capsule
10 mg PO Daily
Citracal
1 tab PO DAILY
Fish Oil
1 tab PO DAILY
olmesartan 5 mg Tablet
5 mg PO DAILY
Discharge Orders:
Discharge Patient (As Directed); Ordered 10/16/24
Ordered By: Alfredo Eller
Discharge Date and Time
Print Language: DUTCH
--- NOTE | 2024-10-16 15:14 | CM ---
Patient has been medically cleared for discharge to home with no additional skilled services. to transport home.
== END 2024-10-16 14:44 | disposition home or self-care (01) | DRG 641 ==
LOC: ICU 00:31
PROVIDERS: Nurse Practitioner Family; ADMITTING PHYSICIAN Internal Medicine; ATTENDING PHYSICIAN Internal Medicine; CONSULT PHYSICIAN Internal Medicine Critical Care Medicine; EMERGENCY PHYSICIAN Emergency Medicine; OTHER PHYSICIAN Internal Medicine Cardiovascular Disease; REFERRING PHYSICIAN Internal Medicine Cardiovascular Disease
PROC: 4A12XM4 Monitoring of Cardiac Stress, External Approach (ICD-10-PCS; 2024-10-16)
DX: E86.0 Dehydration (principal); N17.9 Acute kidney failure, unspecified; G93.40 Encephalopathy, unspecified; I47.20 Ventricular tachycardia, unspecified; E78.00 Pure hypercholesterolemia, unspecified; I10 Essential (primary) hypertension; W01.0XXA Fall on same level from slipping, tripping and stumbling without subsequent striking against object, initial encounter; Z79.82 Long term (current) use of aspirin; N40.0 Benign prostatic hyperplasia without lower urinary tract symptoms; Q23.81 Bicuspid aortic valve; Z79.899 Other long term (current) drug therapy; Z80.42 Family history of malignant neoplasm of prostate; Z86.73 Personal history of transient ischemic attack (TIA), and cerebral infarction without residual deficits; Z87.891 Personal history of nicotine dependence; R00.1 Bradycardia, unspecified; R55 Syncope and collapse
CPT/HCPCS: 93017; 70450; 71045; 71275; 80048; 80053; 80061; 82962; 83036; 83735; 83880; 84443; 84484; 85025; 85027; 85379; 85610; 85652; 85730; 93005; 93306; 93350; 93970; 96360; 99285; Q9967